=== PATIENT | male | born 1995 | race Caucasian/White ===

== ENCOUNTER 2017-02-24 05:37 | Day surgery (SDC) | payer BC ==
[~2017-02-24 05:37] MED LIST: FLONASE ALLERG9.9 ML; NO MEDICATION
== END 2017-02-24 10:14 ==
LOC: SRG 05:37 → SHSB 05:39 → PACU 08:26 → SHSB 08:30
PROC: 099600Z Drainage of Left Middle Ear with Drainage Device, Open Approach (ICD-10-PCS; principal; 2017-02-24)
PROC: 097G4ZZ Dilation of Left Eustachian Tube, Percutaneous Endoscopic Approach (ICD-10-PCS; 2017-02-24)
PROC: 0CBNXZZ Excision of Uvula, External Approach (ICD-10-PCS; 2017-02-24)
DX: H69.82 Other specified disorders of Eustachian tube, left ear (principal); H65.22 Chronic serous otitis media, left ear; D10.39 Benign neoplasm of other parts of mouth; I10 Essential (primary) hypertension; K21.9 Gastro-esophageal reflux disease without esophagitis; Z79.899 Other long term (current) drug therapy; Z90.89 Acquired absence of other organs; Z98.890 Other specified postprocedural states
CPT/HCPCS: C1726; J0171